=== PATIENT | female | born 1975 ===

== ENCOUNTER 2017-06-12 08:48 | Emergency (ER) | payer OTHER ==
[~2017-06-12] VITALS: Ht 162.6 cm; Wt 110.7 kg
[2017-06-12] MEDS ORDERED: [UNRECOGNIZED DRUG - OTHER] (09:14)
[2017-06-12] MEDS ORDERED: NIFE60TA3 (09:14)
[2017-06-12] MEDS ORDERED: HYDROCHLOROTHIA25 MG (09:14)
[2017-06-12] MEDS ORDERED: ALDACTONE25 MG (09:14)
[2017-06-12] MEDS ORDERED: AVAPRO300 MG (09:15)
== END 2017-06-12 11:37 | disposition home or self-care (01) ==
LOC: ER 08:48
DX: R00.2 Palpitations (principal)